=== PATIENT | male | born 1995 | race Two or more races ===

== ENCOUNTER 2025-08-29 08:44 | Emergency (ER) | payer OTHER ==
[~2025-08-29] VITALS: Ht 160 cm; Wt 140.6 kg
[2025-08-29] MEDS ORDERED: 0.9 % SODIUM CHLORIDE 1,000 ML IV ONE (10:00)
[2025-08-29] MEDS ORDERED: ONDANSETRON HCL 4 MG in 0.9 % SODIUM CHLORIDE 50 ML IV ONE (10:00)
[2025-08-29] MEDS ORDERED: 0.9 % SODIUM CHLORIDE 1,000 ML IV SCH (10:00)
[2025-08-29] MEDS ORDERED: KETOROLAC TROMETHAMINE 15 MG VIAL IU ONE (10:00)
[2025-08-29] MEDS ORDERED: FAMOTIDINE/PF 20 MG in 0.9 % SODIUM CHLORIDE 8 ML IV PUSH ONE (10:00)
[2025-08-29 12:38] LABS: BASO % 0.2 % (0.1-1.2); EOS # 0.01 (0.04-0.54); EOS % 0.1 % (0.7-7.0); LYMPH # 0.50 (1.18-3.74); LYMPH % 2.7 % (19.3-53.1); MEAN PLATELET VOLUME 10.40 fl (9.4-12.4); MONO # 1.03 (0.24-0.82); MONO % 5.7 % (4.7-12.5); NEUT # 16.55 (1.56-6.13); NEUT % 90.7 % (34.0-71.1); RED CELL DISTRIBUTION WIDTH 12.3 % (11.6-14.4)
[2025-08-29 13:07] LABS: INR 1.19
[2025-08-29 13:12] LABS: ALT/SGPT 96.0 U/L (12-78); AST/SGOT 74.0 U/L (15-37); BILIRUBIN TOTAL 1.78 mg/dL (0.3-1.2); BUN CREA RATIO 14.0 (7.0-25.0); CREATININE SERUM 1.22 mg/dL (0.70-1.30); GFR 69.75; GLOBULINA 4.4 G/DL (2.4-3.5); GLUCOSE FASTING 112.0 mg/dL (65-100); OSMOLALITY SERUM 274.0 MOSM/KG (275-295)
[2025-08-29 13:22] LABS: URINE APPEARANCE Cloudy; URINE BILIRRUBIN Small (NEGATIVE); URINE BLOOD Negative; URINE COLOR Dark Yellow; URINE GLUCOSE Negative (NEGATIVE); URINE KETONE Negative (NEGATIVE); URINE LEUKOCYTE Trace; URINE NITRATE Negative; URINE PROTEIN 30 (NEGATIVE); URINE UROBILINOGEN 1.0 E.U./dl
[2025-08-29 13:23] LABS: COVID-19 AG NEGATIVE (NEGATIVE)
[2025-08-29 13:25] LABS: URINE BACTERIA 28.7 uL (0.0-1933); URINE EPITHELIAL CELLS 34.2 uL (0.0-38.8); URINE RBC 2.0 uL (0.0-20.8); URINE WBC 10.1 uL (0.0-23.2)
[2025-08-29 13:38] LABS: URINE CAST 1.31 uL (0.0-1.40)
[2025-08-29 13:40] LABS: URINE EPITHELIAL CELLS 0-4 /HPF
[2025-08-29] MEDS ORDERED: PIPERACILLIN/TAZOBACTAM SODIUM 3.375 GM in DEXTROSE 5 % IN WATER 100 ML IV ONE (14:00)
[2025-08-29 15:26] LABS: BILIRUBIN TOTAL 1.83 mg/dL (0.3-1.2); BILIRUBIN,CONJUGATED 0.93 mg/dL (0.0-0.2)
== END 2025-08-29 19:29 | disposition home or self-care (01) ==
LOC: ER 08:44
PROVIDERS: General Practice
DX: K52.89 Other specified noninfective gastroenteritis and colitis (principal); R10.11 Right upper quadrant pain; K57.32 Diverticulitis of large intestine without perforation or abscess without bleeding; Z88.8 Allergy status to other drugs, medicaments and biological substances; B34.9 Viral infection, unspecified; E66.89 Other obesity not elsewhere classified; J45.909 Unspecified asthma, uncomplicated; Z20.822 Contact with and (suspected) exposure to COVID-19; K81.1 Chronic cholecystitis